=== PATIENT | female | born 1995 | race Two or more races ===

== ENCOUNTER 2019-12-07 12:02 | Emergency (ER) | payer SELFPAY ==
[~2019-12-07] VITALS: Ht 157.5 cm; Wt 64.0 kg
[2019-12-07 18:08] VITALS: BP 126/83
== END 2019-12-07 18:42 | disposition short-term general hospital (02) ==
LOC: ER 12:02
DX: B05.0 Measles complicated by encephalitis (principal); R41.82 Altered mental status, unspecified
CPT/HCPCS: 99285; Z7610